=== PATIENT | male | born 1985 | race Caucasian/White ===

== ENCOUNTER 2016-11-12 14:44 | Emergency (ER) | payer SELFPAY ==
[~2016-11-12] VITALS: Ht 180.3 cm; Wt 67.8 kg
[~2016-11-12 14:44] MED LIST: DICL75 PO; MMW SSP; PENI500T PO
[2016-11-12 14:55] VITALS: BP 125/65; PULSE 74; RESP 16; TEMP 98.4; O2SAT 99
[2016-11-12] MEDS ORDERED: CLIN1CAP5 PO (15:50)
--- NOTE | 2016-11-12 15:51 | PD ---
HPI Chief Complaint: Oral / Dental Pain or Problem Time Seen by Provider: 15:51 Travel History International Travel<30 days: No Contact w/Intl Traveler<30days: No Traveled to known affect area: No History of Present Illness HPI 31-year-old male presents to the emergency department for evaluation of right upper dental pain and swelling for 1 day. Patient denies any injury or trauma to his teeth. States that the pain is causing him to have headache. Denies any discharge or drainage from the site. Denies any fever, chills, nausea, vomiting, difficulty swallowing, facial swelling. States he has taken over-the- counter ibuprofen and Tylenol without improvement of symptoms. Aggravated with talking and eating. Denies any alleviating factors. No other complaints. PFSH Past Medical History Medical History: Denies Significant Hx Diminished Hearing: No Immunizations Current: Yes Tetanus Vaccination: Unknown Influenza Vaccination: No Social History Alcohol Use: No Tobacco Use: Yes (1 PPD) Substance Use: No Allergies-Medications (Allergen,Severity, Reaction): Coded Allergies: No Known Allergies (Verified , 11/12/16) Reported Meds & Prescriptions Reported Meds & Active Scripts Active Clindamycin (Clindamycin HCl) 150 Mg Cap 300 Mg PO Q6H 10 Days Review of Systems Except as stated in HPI: all other systems reviewed are Neg Physical Exam Narrative GENERAL: Well-nourished and well-developed pleasant patient in no acute distress who is nontoxic appearing. SKIN: Warm and dry. HEAD: Normocephalic and atraumatic. No facial swelling. EYES: No injection, drainage, or hyphema noted. PERRLA. EOMI. ENT: No nasal drainage noted. Oropharynx is clear. DENTAL: Poor dentition. Multiple dental caries throughout. The gingiva above the right upper incisor tooth #7 is erythematous with swelling and fluctuance. No discharge or drainage. NECK: Supple and the trachea is midline. CARDIOVASCULAR: Regular rate and rhythm. RESPIRATORY: Breath sounds are equal bilaterally with no accessory muscle use, wheezing, rhonchi, or crackles. NEUROLOGICAL: Awake, alert, and oriented. Normal speech and gait. Cranial nerves are grossly intact. Data Data Last Documented VS Vital Signs Date Time Temp Pulse Resp B/P Pulse Ox O2 Delivery O2 Flow Rate FiO2 11/12/16 14:55 98.4 74 16 125/65 99 Orders Acetamin-Hydrocod 325-5 Mg ([place] 5-325 (11/12/16 16:00) MDM Medical Decision Making Medical Screen Exam Complete: Yes Emergency Medical Condition: Yes Differential Diagnosis Dental abscess versus infection versus pulpitis Narrative Course 31-year-old male presents to the emergency department for evaluation of dental pain. Patient is afebrile, vital signs are stable. He has a dental abscess. The patient will be prescribed clindamycin. Stressed the importance of following up with a dentist as an outpatient. Patient verbalizes understanding and agreement with treatment plan. Diagnosis Primary Impression: Dental abscess Referrals: Dentist Patient Instructions: Dental Abscess (ED), General Instructions Additional Instructions: Take medication as prescribed with food and a full glass of water. Follow-up with your Dentist. Return to the ED for any acute worsening of symptoms. Med/Other Pt SpecificInfo: Prescription(s) given Scripts Clindamycin 150 Mg [id number] Mg PO Q6H 10 Days Ref 0 Prov:Chaparro Peña MD 11/12/16 Disposition: 01 DISCHARGE HOME Condition: Stable Dalia Love Nov 12, 2016 15:51
[2016-11-12] MEDS ORDERED: NAPR500T PO (15:58)
[2016-11-12] MEDS ORDERED: ACETAMINOPHEN/HYDROcodone 325 MG/5 MG TAB PO ONE (16:00)
[2016-11-12 16:36] VITALS: RESP 18
== END 2016-11-12 16:37 | disposition home or self-care (01) ==
LOC: PHEFT 14:44
DX: K04.7 Periapical abscess without sinus (principal); R51 Headache; F17.200 Nicotine dependence, unspecified, uncomplicated
CPT/HCPCS: 99282

== ENCOUNTER 2016-12-07 14:36 | Inpatient (IN) | payer SELFPAY ==
[~2016-12-07] VITALS: Ht 180.3 cm; Wt 72.0 kg
[~2016-12-07 14:36] MED LIST changes: +CLIN1CAP5 PO; -DICL75 PO; -MMW SSP; +NAPR500T PO; -PENI500T PO
[2016-12-07 14:37] VITALS: BP 121/62; PULSE 16; PULSE 91; RESP 14; TEMP 98; O2SAT 99
--- NOTE | 2016-12-07 15:18 | PD ---
HPI Chief Complaint: Skin Problem Time Seen by Provider: 15:18 Travel History International Travel<30 days: No Contact w/Intl Traveler<30days: No Traveled to known affect area: No History of Present Illness HPI 31-year-old male with remote history of IV drug abuse presents to emergency department for evaluation of left upper extremity erythema and edema worsening over the last day. Patient states he noticed it most this morning. It is extremely painful, rates the pain an 8 out of 10. Denies any recent IV drug use. Denies any fever or chills. 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 Is current on his tetanus vaccination. Has no other symptoms to report. [facility] Past Medical History Medical History: Denies Significant Hx Diminished Hearing: No Immunizations Current: Yes Social History Alcohol Use: No Tobacco Use: Yes (1 PPD) Substance Use: No Allergies-Medications (Allergen,Severity, Reaction): Coded Allergies: No Known Allergies (Verified , 12/07/16) Reported Meds & Prescriptions Reported Meds & Active Scripts Active No Active Prescriptions or Reported Medications Review of Systems Except as stated in HPI: all other systems reviewed are Neg Physical Exam Narrative GENERAL: Well-nourished male patient, seemingly under the influence of unknown substance but in no acute distress SKIN: Warm and dry. Multiple small scab wounds and markings consistent with puncture wounds, concerning for track francois. Proximal to the left antecubital a there is a large area of erythema extending 10 cm at the center of it is a 3 cm diameter hardened area. There is no fluctuation. HEAD: Atraumatic. Normocephalic. EYES: Pupils equal and round. No scleral icterus. No injection or drainage. ENT: No nasal bleeding or discharge. Mucous membranes pink and moist. NECK: Trachea midline. No JVD. CARDIOVASCULAR: Regular rate and rhythm. No murmur appreciated. RESPIRATORY: No accessory muscle use. Clear to auscultation. Breath sounds equal bilaterally. GASTROINTESTINAL: Abdomen soft, non-tender, nondistended. Hepatic and splenic margins not palpable. MUSCULOSKELETAL: No obvious deformities. No clubbing. No cyanosis. She has full flexion extension of the left elbow. Distal pulses are palpable. Cap refills within normal limits. NEUROLOGICAL: Awake and alert. No obvious cranial nerve deficits. Motor grossly within normal limits. Normal speech. PSYCHIATRIC: Appropriate mood and affect; insight and judgment normal. Data Data Last Documented VS Vital Signs Date Time Temp Pulse Resp B/P Pulse Ox O2 Delivery O2 Flow Rate FiO2 12/07/16 18:04 97.8 67 17 113/77 99 Room Air Orders Us Arm Soft Tissue (12/07/16 ) Ketorolac Inj (Toradol Inj) (12/07/16 15:30) Complete Blood Count With Diff (12/07/16:) Prothrombin Time / Inr (Pt) (12/07/16:) Act Partial Throm Time (Ptt) (12/07/16:13) Urinalysis - C+S If Indicated (12/07/16:) Blood Culture (12/07/16:) Blood Glucose (12/07/16:) Ecg Monitoring (12/07/16:) Iv Access Insert/Monitor (12/07/16:) Oximetry (12/07/16:) Oxygen Administration (12/07/16:13) Basic Metabolic Panel (Bmp) (12/07/16:13) Clindamycin Inj (Cleocin Inj) (12/07/16 17:15) Piperacil-Tazo 3.375 Gm Premix (Zosyn 3. (12/07/16 18:30) Admit Order (Ed Use Only) (12/07/16 18:24) Code Status (12/07/16 18:23) Vital Signs (Adult) Q4H (12/07/16 18:23) Activity Oob Ad [place] (12/07/16 18:23) Intake + Output LON.QSHIFT (12/07/16 18:23) ^ Notify Dr: Other (12/07/16 18:23) Diet Regular Basic (12/07/16 Dinner) Sodium Chlor 0.9% 1000 Ml Inj (Ns 1000 M (12/07/16 18:23) Sodium Chloride 0.9% Flush (Ns Flush) (12/07/16 18:30) Sodium Chloride 0.9% Flush (Ns Flush) (12/07/16 21:00) Acetaminophen (Tylenol) (12/07/16 18:30) Ondansetron Inj (Zofran Inj) (12/07/16 18:30) Metoclopramide Inj (Reglan Inj) (12/07/16 18:30) Bisacodyl Supp (Dulcolax Supp) (12/07/16 18:30) Docusate Sodium (Colace) (12/07/16 20:00) Basic Metabolic Panel (Bmp) (12/08/16 06:00) Complete Blood Count With Diff (12/08/16 06:00) Prothrombin Time / Inr (Pt) (12/08/16 06:00) Hepatic Functional Panel (12/08/16 06:00) Heparin Inj (Heparin Inj) (12/07/16 18:30) Naloxone Inj (Narcan Inj) (12/07/16 18:30) Inpatient Certification (12/07/16 ) Labs Laboratory Tests Test 12/07/16 17:25 White Blood Count 8.8 TH/MM3 Red Blood Count 4.60 MIL/MM3 Hemoglobin 13.5 GM/DL Hematocrit 40.0 % Mean Corpuscular Volume 86.8 FL Mean Corpuscular Hemoglobin 29.4 PG Mean Corpuscular Hemoglobin 33.9 % Concent Red Cell Distribution Width 14.1 % Platelet Count 234 TH/MM3 Mean Platelet Volume 8.9 FL Neutrophils (%) (Auto) 64.5 % Lymphocytes (%) (Auto) 21.8 % Monocytes (%) (Auto) 10.4 % Eosinophils (%) (Auto) 2.8 % Basophils (%) (Auto) 0.5 % Neutrophils # (Auto) 5.7 TH/MM3 Lymphocytes # (Auto) 1.9 TH/MM3 Monocytes # (Auto) 0.9 TH/MM3 Eosinophils # (Auto) 0.3 TH/MM3 Basophils # (Auto) 0.0 TH/MM3 CBC Comment DIFF FINAL Differential Comment Prothrombin Time 10.9 SEC Prothromb Time International 1.0 RATIO Ratio Activated Partial 32.3 SEC Thromboplast Time Sodium Level 139 MEQ/L Potassium Level 3.9 MEQ/L Chloride Level 101 MEQ/L Carbon Dioxide Level 31.2 MEQ/L Anion Gap 7 MEQ/L Blood Urea Nitrogen 14 MG/DL Creatinine 0.99 MG/DL Estimat Glomerular Filtration 87 ML/MIN Rate Random Glucose 131 MG/DL Calcium Level 8.4 MG/DL MDM Medical Decision Making Medical Screen Exam Complete: Yes Emergency Medical Condition: Yes Medical Record Reviewed: Yes Differential Diagnosis Cellulitis versus abscess versus foreign body versus erysipelas versus sepsis Narrative Course 31-year-old male presents to the emergency brought in for evaluation of left upper extremity redness and swelling. Physical exam is consistent of cellulitis however there is a hardened area at the center. Ultrasound is complete and shows Last Impressions Upper Extremity Ultrasound 12/07/16 0000 Signed Impressions: Service Date/Time: Wednesday, December 07, 2016 15:49 - CONCLUSION: Relatively large subcutaneous abscess medially of the distal arm. Jaden Carreon MD I discussed the patient might any physician Dr. Mi who also assessed the area. He recommends admission to medicine for IV antibiotics and possible surgical consult. I spoke with Dr. Connolly. Patient be admitted to [facility]ist service. Diagnosis Primary Impression: Cellulitis of arm, left Additional Impression: Abscess of arm, left Admitting Information Admitting Physician Requests: Observation Scripts No Active Prescriptions or Reported Meds Condition: Stable Samantha Rao Dec 07, 2016 15:18
[2016-12-07] MEDS ORDERED: KETOROLAC TROMETHAMINE 60 MG/2 ML (IM) VIAL IM ONE (15:30)
--- NOTE | 2016-12-07 16:38 | RADRPT ---
EXAM DATE/TIME: 12/07/2016 15:49 [facility] COMPARISON: No previous studies available for comparison. INDICATIONS : Palpable area. MEDICAL HISTORY : Left arm redness and pain. SURGICAL HISTORY : Right hand surgery. ENCOUNTER: Initial ACUITY: 1 day PAIN SCORE: 9/10 LOCATION: Left arm. AREA EVALUATED: Medial left arm just prox to elbow. FINDINGS: Complex, hyperemic fluid collection seen in the subcutaneous tissues in the apical clear region typic al of abscess in the proper clinical setting. The collection measures 2.9 x 2.0 x 1.6 cm. There is a larger area of surrounding edematous, hyperemic tissue. Superficial margin of the fluid collection is about 4 mm below the skin. . CONCLUSION: Relatively large subcutaneous abscess medially of the distal arm. Jaden Carreon MD on December 07, 2016 at 16:35 Board Certified Radiologist. This report was verified electronically.
[2016-12-07] MEDS ORDERED: CLINDAMYCIN INJ 600 MG in SODIUM CHLORIDE 0.9% INJ 100 ML IV ONE (17:15)
[2016-12-07 17:49] LABS: AUTOMATED NEUTROPHIL # 5.7 TH/MM3 (1.8-7.7); BASOPHIL % 0.5 % (0.0-2.0); EOSINOPHIL # 0.3 TH/MM3 (0-0.4); EOSINOPHIL % 2.8 % (0.0-4.0); HEMO FLAGS DIFF FINAL; LYMPH % 21.8 % (9.0-44.0); LYMPHOCYTE # 1.9 TH/MM3 (1.0-4.8); MEAN CELL VOLUME 86.8 FL (80.0-100.0); MEAN CORPUSCULAR HEMOGLOBIN 29.4 PG (27.0-34.0); MEAN CORPUSCULAR HGB CONC 33.9 % (32.0-36.0); MONO % 10.4 % (0.0-8.0); NEUT % 64.5 % (16.0-70.0); PLATELET COUNT 234 TH/MM3 (150-450); RED CELL DISTRIBUTION WIDTH 14.1 % (11.6-17.2); WHITE BLOOD COUNT 8.8 TH/MM3 (4.0-11.0)
[2016-12-07 17:58] VITALS: RESP 17; O2SAT 99
[2016-12-07 17:59] LABS: APTT (PATIENT) 32.3 SEC (24.3-30.1); PROTHROMBIN TIME - PATIENT 10.9 SEC (9.8-11.6)
[2016-12-07 18:04] VITALS: BP 113/77; PULSE 67; RESP 17; TEMP 97.8; O2SAT 99
[2016-12-07 18:09] LABS: BICARBONATE 31.2 MEQ/L (21.0-32.0); POTASSIUM 3.9 MEQ/L (3.5-5.1)
[2016-12-07] MEDS ORDERED: SODIUM CHLORIDE 0.9% FLUSH 5 ML FLUSH FLUSH PRN (18:30)
[2016-12-07] MEDS ORDERED: BISACODYL 10 MG SUPP PR PRN (18:30)
[2016-12-07] MEDS ORDERED: NALOXONE HCL 0.4 MG/ML AMP IV PRN (18:30)
[2016-12-07] MEDS ORDERED: ONDANSETRON HCL 4 MG/2 ML VIAL IVP PRN (18:30)
[2016-12-07] MEDS ORDERED: METOCLOPRAMIDE HCL 10 MG/2 ML VIAL IV PUSH PRN (18:30)
[2016-12-07] MEDS ORDERED: ACETAMINOPHEN 325 MG TAB PO PRN (18:30)
[2016-12-07] MEDS ORDERED: PIPERACIL-TAZO 3.375 GM PREMIX 50 ML IV ONE (18:30)
[2016-12-07] MEDS ORDERED: Vancomycin Consult Pharmacy 1 EA OTHER SCH (18:30)
[2016-12-07] MEDS: SODIUM CHLOR 0.9% 1000 ML INJ 1,000 ML IV SCH (18:38)
--- NOTE | 2016-12-07 18:51 | HHI.HP ---
[facility] No Primary Care Physician Admission Diagnosis LUE cellulitis/abscess Diagnoses: Chief Complaint: left arm pain, edema and erythema Travel History International Travel<30 Days: No Contact w/Intl Traveler <30 Da: No Traveled to Known Affected Are: No History of Present Illness This is a pleasant 31 y/o Male with no past medical history with his Fiance by his side states this morning woke up with pain on his left inner arm near antecubital area denies any drug abuse or needle use, he developed erythema and edema and pain on the area decided to come to ER for evaluation . Past Family Social History Past Medical History Denies Past Surgical History Right arm surgery status post trauma Reported Medications Reported Meds & Active Scripts Active No Active Prescriptions or Reported Medications Allergies: Coded Allergies: No Known Allergies (Verified , 12/07/16) Active Ordered Medications Current Medications Medications (Trade) Dose Ordered Sig/Anita Route Start Time Stop Time Status Last Admin Piperacillin Sod/ Tazobactam Sod 50 ml @ 100 mls/hr ONCE ONCE IV 12/07/16 18:30 12/07/16 18:59 12/07/16 18:25 (NS 1000 ml Inj) 1,000 ml @ 100 mls/hr Q10H IV 12/07/16 18:23 12/07/16 18:38 (NS Flush) 2 ml UNSCH PRN FLUSH 12/07/16 18:30 (NS Flush) 2 ml BID FLUSH 12/07/16 21:00 (Tylenol) 650 mg Q4H PRN PO 12/07/16 18:30 (Zofran Inj) 4 mg Q6H PRN IVP 12/07/16 18:30 (Reglan Inj) 5 mg Q6H PRN IV PUSH 12/07/16 18:30 (Dulcolax Supp) 10 mg DAILY PRN LA 12/07/16 18:30 (Colace) 100 mg Q12H PO 12/07/16 20:00 (Heparin Inj) 5,000 units Q8H SQ 12/07/16 18:30 UNV Naloxone HCl 0.4 mg 0.4 mg UNSCH PRN IV 12/07/16 18:30 Vancomycin HCl 1250 mg/Sodium Chloride 262.5 ml @ 262.5 mls/ hr ONCE ONCE IV 12/07/16 18:30 12/07/16 19:29 UNV Piperacillin Sod/ Tazobactam Sod 50 ml @ 100 mls/hr Q6H IV 12/08/16 00:00 (Vancomycin Consult Pharmacy) 0 ml @ 0 mls/hr UNSCH OTHER 12/07/16 18:30 Family History Asked and denied Social History Lives with his Fiance, and smokes one pack of cigarettes daily, alcohol occasional no narcotic use. Physical Exam Vital Signs Vital Signs Date Time Temp Pulse Resp B/P Pulse Ox O2 Delivery O2 Flow Rate FiO2 12/07/16 18:04 97.8 67 17 113/77 99 Room Air 12/07/16 17:58 99 Room Air 12/07/16 17:58 17 99 Room Air 12/07/16 17:50 18 12/07/16 14:37 98.0 91 14 121/62 99 Physical Exam GENERAL: This is a well-nourished, well-developed patient, in no apparent distress. SKIN: No rashes, ecchymoses or lesions. Cool and dry. HEAD: Atraumatic. Normocephalic. No temporal or scalp tenderness. EYES: Pupils equal round and reactive. Extraocular motions intact. No scleral icterus. No injection or drainage. ENT: Nose without bleeding, purulent drainage or septal hematoma. Throat without erythema, tonsillar hypertrophy or exudate. Uvula midline. Airway patent. NECK: Trachea midline. No JVD or lymphadenopathy. Supple, nontender, no meningeal signs. CARDIOVASCULAR: Regular rate and rhythm without murmurs, gallops, or rubs. RESPIRATORY: Clear to auscultation. Breath sounds equal bilaterally. No wheezes , rales, or rhonchi. GASTROINTESTINAL: Abdomen soft, non-tender, nondistended. No hepato-splenomegaly , or palpable masses. No guarding. MUSCULOSKELETAL: left internal area or the left arm with 3 inches area of erythema edema and changes in calor and rubor. NEUROLOGICAL: Awake and alert. Cranial nerves II through XII intact. Motor and sensory grossly within normal limits. Five out of 5 muscle strength in all muscle groups. Normal speech. Laboratory Laboratory Tests Test 12/07/16 17:25 White Blood Count 8.8 Red Blood Count 4.60 Hemoglobin 13.5 Hematocrit 40.0 Mean Corpuscular Volume 86.8 Mean Corpuscular Hemoglobin 29.4 Mean Corpuscular Hemoglobin 33.9 Concent Red Cell Distribution Width 14.1 Platelet Count 234 Mean Platelet Volume 8.9 Neutrophils (%) (Auto) 64.5 Lymphocytes (%) (Auto) 21.8 Monocytes (%) (Auto) 10.4 Eosinophils (%) (Auto) 2.8 Basophils (%) (Auto) 0.5 Neutrophils # (Auto) 5.7 Lymphocytes # (Auto) 1.9 Monocytes # (Auto) 0.9 Eosinophils # (Auto) 0.3 Basophils # (Auto) 0.0 CBC Comment DIFF FINAL Differential Comment Prothrombin Time 10.9 Prothromb Time International 1.0 Ratio Activated Partial 32.3 Thromboplast Time Sodium Level 139 Potassium Level 3.9 Chloride Level 101 Carbon Dioxide Level 31.2 Anion Gap 7 Blood Urea Nitrogen 14 Creatinine 0.99 Estimat Glomerular Filtration 87 Rate Random Glucose 131 Calcium Level 8.4 Date/Time Procedure Status Source Growth 12/07/16 17:35 Aerobic Blood Culture Received Blood Peripheral Pending 12/07/16 17:35 Anaerobic Blood Culture Received Blood Peripheral Pending Result Diagram: 12/07/16 1725 12/07/16 1725 Imaging Last Impressions Upper Extremity Ultrasound 12/07/16 0000 Signed Impressions: Service Date/Time: Wednesday, December 07, 2016 15:49 - CONCLUSION: Relatively large subcutaneous abscess medially of the distal arm. Jaden Carreon MD Assessment and Plan Assessment and Plan Left arm abscess following blood cultures, started on Clindamycin and Zosyn in Emergency room I will continue Zosyn switch to Vancomycin, consult general field applications specialist and follow recommendations for management De Escalate antibiotics depend of cultures Tobacco dependence strongly recommended to stop smoking asked for blood cultures, Drug screen DVT prophylaxis with Heparin to discontinue for possible procedure by General Surgery. Code Status Full Code. Physician Certification 2 Midnight Certification Type: Admission for Inpatient Services Order for Inpatient Services The services are ordered in accordance with Medicare regulations or non- Medicare payer requirements, as applicable. In the case of services not specified as inpatient-only, they are appropriately provided as inpatient services in accordance with the 2-midnight benchmark. Estimated LOS (days): 3 days is the estimated time the patient will need to remain in the hospital, assuming treatment plan goals are met and no additional complications. Post-Hospital Plan: Home Cuate Linares MD Dec 07, 2016 18:51
[2016-12-07] MEDS: ACETAMINOPHEN/HYDROcodone 325 MG/5 MG TAB PO PRN (19:20)
[2016-12-07] MEDS: SODIUM CHLORIDE 0.9% FLUSH 5 ML FLUSH FLUSH SCH (21:00)
[2016-12-07] MEDS: DOCUSATE SODIUM 100 MG CAP PO SCH (21:54)
[2016-12-07] MEDS: VANCOMYCIN INJ 1,250 MG in SODIUM CHLOR 0.9% 250 ML INJ 250 ML IV SCH (21:54)
[2016-12-07] MEDS: HEPARIN SODIUM - SQ 10,000 UNITS/ML VIAL SQ SCH (21:55)
[2016-12-07 21:56] VITALS: BP 120/74; PULSE 74; RESP 26; O2SAT 98
[2016-12-07 22:14] VITALS: BP 115/58; PULSE 63; RESP 20; TEMP 98; O2SAT 97
[2016-12-07 23:39] VITALS: BP 119/51; PULSE 73; RESP 20; TEMP 97.6; O2SAT 98
[2016-12-08] MEDS: PIPERACIL-TAZO 3.375 GM PREMIX 50 ML IV SCH ×5 (00:42→23:13)
[2016-12-08] MEDS: ACETAMINOPHEN/HYDROcodone 325 MG/5 MG TAB PO PRN ×4 (01:15→18:50)
[2016-12-08 04:09] VITALS: BP 137/73; PULSE 85; RESP 20; TEMP 97.9; O2SAT 99
[2016-12-08] MEDS: SODIUM CHLOR 0.9% 1000 ML INJ 1,000 ML IV SCH ×3 (04:23→20:46)
[2016-12-08] MEDS: HEPARIN SODIUM - SQ 10,000 UNITS/ML VIAL SQ SCH ×3 (04:47→20:00)
[2016-12-08 08:16] LABS: AUTOMATED NEUTROPHIL # 6.1 TH/MM3 (1.8-7.7); BASOPHIL % 0.3 % (0.0-2.0); EOSINOPHIL # 0.2 TH/MM3 (0-0.4); EOSINOPHIL % 2.1 % (0.0-4.0); HEMATOCRIT 40.9 % (39.0-51.0); HEMO FLAGS DIFF FINAL; LYMPH % 19.9 % (9.0-44.0); LYMPHOCYTE # 1.8 TH/MM3 (1.0-4.8); MEAN CELL VOLUME 87.6 FL (80.0-100.0); MEAN CORPUSCULAR HEMOGLOBIN 29.1 PG (27.0-34.0); MEAN CORPUSCULAR HGB CONC 33.3 % (32.0-36.0); MONO % 9.1 % (0.0-8.0); NEUT % 68.6 % (16.0-70.0); PLATELET COUNT 233 TH/MM3 (150-450); RED BLOOD COUNT 4.67 MIL/MM3 (4.50-5.90); RED CELL DISTRIBUTION WIDTH 14.1 % (11.6-17.2); WHITE BLOOD COUNT 8.8 TH/MM3 (4.0-11.0)
[2016-12-08] MEDS: DOCUSATE SODIUM 100 MG CAP PO SCH ×2 (08:20→20:00)
[2016-12-08] MEDS: SODIUM CHLORIDE 0.9% FLUSH 5 ML FLUSH FLUSH SCH ×2 (08:20→20:55)
[2016-12-08 08:29] LABS: PROTHROMBIN TIME - PATIENT 11.4 SEC (9.8-11.6)
[2016-12-08 08:33] VITALS: BP 130/73; PULSE 62; RESP 14; TEMP 98.1; O2SAT 99
[2016-12-08] MEDS ORDERED: LIDOCAINE HCL 1% 50 ML VIAL ONE (08:50)
[2016-12-08 08:51] LABS: INDIRECT BILIRUBIN 0.8 MG/DL (0.0-0.8); POTASSIUM 4.1 MEQ/L (3.5-5.1)
--- NOTE | 2016-12-08 09:12 | MB ---
cc: EBONY TAVERAS DATE OF CONSULTATION: 12/07/2016 REQUESTING PHYSICIAN: Dr. Heron Connolly. REASON FOR CONSULTATION: Left lower extremity edema, pain and cellulitis. 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 The patient denies any drug use or IV injection in this area. The patient states he never had a infection like this prior. The patient was brought to the emergency room for evaluation by his fiance. He underwent evaluation was found to have white blood cell count of 8.8, afebrile, however, ultrasound of this area did show some subcutaneous change possible early abscess formation and therefore general surgery was consulted.. PAST MEDICAL AND SURGICAL HISTORY Right arm surgery after trauma otherwise negative. ALLERGIES NO KNOWN DRUG ALLERGIES. MEDICATIONS None. SOCIAL HISTORY Smokes cigarettes occasionally uses alcohol. Denies illicit drug use. PHYSICAL EXAMINATION VITAL SIGNS: Temperature 97.8 degrees, pulse 67, respiratory rate 17, blood pressure 113/77, O2 sat 100%. IN GENERAL: The patient is awake, alert appropriate. male in no acute distress. EXTREMITY: The left arm reveals a neurovascularly intact arm which showed some minimal erythema, some edema over the area of the biceps subcutaneously with some edema surrounding this area consistent with mild cellulitis. There is no fluctuance or purulence. No spontaneous drainage, no lymphadenopathy. ASSESSMENT/PLAN The patient is a 31 year old male with left upper arm, soft tissue infection without sepsis. Currently clinically the patient has no drainable abscess or fluid and per history this has only been going on for less than 24 hours therefore unlikely that this could have formed an abscess. I discussed this with the patient lenny, that I do not feel that incision and drainage at this time would be in the patient's best interest. We will continue antibiotics. Follow along with the patient. If the patient were to develop a focal abscess with fluctuance in the next 24 to 48 hours we will recommend draining at that time. Otherwise due to the early stage of the infection, antibiotics can potentially clear the infection without surgical intervention. They would like to avoid surgical intervention if at all possible as well. Thank you very much for this consultation. We will follow along with the patient MD RADHA Fish/[place] /2:44 AM /8:23 AM
--- NOTE | 2016-12-08 09:27 | HHI.PR ---
Subjective Subjective Notes feels well, still lue pain Objective Vitals/I&O Vital Signs Date Time Temp Pulse Resp B/P Pulse Ox O2 Delivery O2 Flow Rate FiO2 12/08/16 08:33 98.1 62 14 130/73 99 12/07/16 21:56 Room Air Labs Laboratory Tests Test 12/07/16 12/08/16 17:25 06:55 White Blood Count 8.8 8.8 Red Blood Count 4.60 4.67 Hemoglobin 13.5 13.6 Hematocrit 40.0 40.9 Mean Corpuscular Volume 86.8 87.6 Mean Corpuscular Hemoglobin 29.4 29.1 Mean Corpuscular Hemoglobin 33.9 33.3 Concent Red Cell Distribution Width 14.1 14.1 Platelet Count 234 233 Mean Platelet Volume 8.9 9.6 Neutrophils (%) (Auto) 64.5 68.6 Lymphocytes (%) (Auto) 21.8 19.9 Monocytes (%) (Auto) 10.4 9.1 Eosinophils (%) (Auto) 2.8 2.1 Basophils (%) (Auto) 0.5 0.3 Neutrophils # (Auto) 5.7 6.1 Lymphocytes # (Auto) 1.9 1.8 Monocytes # (Auto) 0.9 0.8 Eosinophils # (Auto) 0.3 0.2 Basophils # (Auto) 0.0 0.0 CBC Comment DIFF FINAL DIFF FINAL Differential Comment Prothrombin Time 10.9 11.4 Prothromb Time International 1.0 1.0 Ratio Activated Partial 32.3 Thromboplast Time Sodium Level 139 141 Potassium Level 3.9 4.1 Chloride Level 101 107 Carbon Dioxide Level 31.2 26.0 Anion Gap 7 8 Blood Urea Nitrogen 14 16 Creatinine 0.99 0.93 Estimat Glomerular Filtration 87 94 Rate Random Glucose 131 98 Calcium Level 8.4 8.2 Total Bilirubin 1.0 Direct Bilirubin 0.2 Indirect Bilirubin 0.8 Aspartate Amino Transf 105 (AST/SGOT) Alanine Aminotransferase 159 (ALT/SGPT) Alkaline Phosphatase 48 Total Protein 6.8 Albumin 2.9 Date/Time Procedure Status Source Growth 12/07/16 17:35 Aerobic Blood Culture Received Blood Peripheral Pending 12/07/16 17:35 Anaerobic Blood Culture Received Blood Peripheral Pending Extremities: No edema Narrative Exam LUE with less erythema A/P Assessment and Plan 31yo with LUE infection/early abscess, ID today with some small amount of pus, ok for showering and DC from surgery standpoint, fu PRN. culture taken/pending. Beni King MD Dec 08, 2016 09:27
[2016-12-08] MEDS: VANCOMYCIN INJ 1,250 MG in SODIUM CHLOR 0.9% 250 ML INJ 250 ML IV SCH ×2 (09:49→20:44)
--- NOTE | 2016-12-08 10:51 | HHI.PR ---
Subjective Remarks This is a pleasant 31 y/o Male with no past medical history with his Fiance by his side states this morning woke up with pain on his left inner arm near antecubital area denies any drug abuse or needle use, he developed erythema and edema and pain on the area decided to come to ER for evaluation . patient seen in his bedroom continue antibiotics, following blood culture, status post I and D performed by General blood bank specialist, Discussed with Doctor Beni King he is okay to discharge patient from General Surgery standpoint, will follow patient 23 hours more Hospitalized. afebrile, no Leukocytosis probable discharge in am tomorrow. Objective Vital Signs Date Time Temp Pulse Resp B/P Pulse Ox O2 Delivery O2 Flow Rate FiO2 12/08/16 09:40 18 12/08/16 08:33 98.1 62 14 130/73 99 12/08/16 04:09 97.9 85 20 137/73 99 12/07/16 23:39 97.6 73 20 119/51 98 12/07/16 22:14 98.0 63 20 115/58 97 12/07/16 21:56 74 26 120/74 98 Room Air 12/07/16 18:04 97.8 67 17 113/77 99 Room Air 12/07/16 17:58 99 Room Air 12/07/16 17:58 17 99 Room Air 12/07/16 17:50 18 12/07/16 14:37 98.0 91 14 121/62 99 I/O 12/07/16 12/07/16 12/07/16 12/08/16 12/08/16 12/08/16 07:00 15:00 23:00 07:00 15:00 23:00 Intake Total 240 ml Output Total 800 ml 550 ml Balance -560 ml -550 ml Intake Oral 240 ml Output Urine Total 800 ml 550 ml Result Diagram: 12/08/16 0655 12/08/16 0655 Imaging Last Impressions Upper Extremity Ultrasound 12/07/16 0000 Signed Impressions: Service Date/Time: Wednesday, December 07, 2016 15:49 - CONCLUSION: Relatively large subcutaneous abscess medially of the distal arm. Jaden Carreon MD Procedures Status post I and D performed by General Surgery Other Results Laboratory Tests Test 12/07/16 12/08/16 17:25 06:55 Activated Partial 32.3 SEC Thromboplast Time White Blood Count 8.8 TH/MM3 Red Blood Count 4.67 MIL/MM3 Hemoglobin 13.6 GM/DL Hematocrit 40.9 % Mean Corpuscular Volume 87.6 FL Mean Corpuscular Hemoglobin 29.1 PG Mean Corpuscular Hemoglobin 33.3 % Concent Red Cell Distribution Width 14.1 % Platelet Count 233 TH/MM3 Mean Platelet Volume 9.6 FL Neutrophils (%) (Auto) 68.6 % Lymphocytes (%) (Auto) 19.9 % Monocytes (%) (Auto) 9.1 % Eosinophils (%) (Auto) 2.1 % Basophils (%) (Auto) 0.3 % Neutrophils # (Auto) 6.1 TH/MM3 Lymphocytes # (Auto) 1.8 TH/MM3 Monocytes # (Auto) 0.8 TH/MM3 Eosinophils # (Auto) 0.2 TH/MM3 Basophils # (Auto) 0.0 TH/MM3 CBC Comment DIFF FINAL Differential Comment Prothrombin Time 11.4 SEC Prothromb Time International 1.0 RATIO Ratio Sodium Level 141 MEQ/L Potassium Level 4.1 MEQ/L Chloride Level 107 MEQ/L Carbon Dioxide Level 26.0 MEQ/L Anion Gap 8 MEQ/L Blood Urea Nitrogen 16 MG/DL Creatinine 0.93 MG/DL Estimat Glomerular Filtration 94 ML/MIN Rate Random Glucose 98 MG/DL Calcium Level 8.2 MG/DL Total Bilirubin 1.0 MG/DL Direct Bilirubin 0.2 MG/DL Indirect Bilirubin 0.8 MG/DL Aspartate Amino Transf 105 U/L (AST/SGOT) Alanine Aminotransferase 159 U/L (ALT/SGPT) Alkaline Phosphatase 48 U/L Total Protein 6.8 GM/DL Albumin 2.9 GM/DL Objective Remarks GENERAL: This is a well-nourished, well-developed patient, in no apparent distress. SKIN: No rashes, ecchymoses or lesions. Cool and dry. HEAD: Atraumatic. Normocephalic. No temporal or scalp tenderness. EYES: Pupils equal round and reactive. Extraocular motions intact. No scleral icterus. No injection or drainage. ENT: Nose without bleeding, purulent drainage or septal hematoma. Throat without erythema, tonsillar hypertrophy or exudate. Uvula midline. Airway patent. NECK: Trachea midline. No JVD or lymphadenopathy. Supple, nontender, no meningeal signs. CARDIOVASCULAR: Regular rate and rhythm without murmurs, gallops, or rubs. RESPIRATORY: Clear to auscultation. Breath sounds equal bilaterally. No wheezes , rales, or rhonchi. GASTROINTESTINAL: Abdomen soft, non-tender, nondistended. No hepato-splenomegaly , or palpable masses. No guarding. MUSCULOSKELETAL: left internal area or the left arm with 3 inches area of erythema edema and changes in calor and rubor. NEUROLOGICAL: Awake and alert. Cranial nerves II through XII intact. Motor and sensory grossly within normal limits. Five out of 5 muscle strength in all muscle groups. Normal speech. Medications and IVs Current Medications Medications (Trade) Dose Ordered Sig/Anita Route Start Time Stop Time Status Last Admin (NS 1000 ml Inj) 1,000 ml @ 100 mls/hr Q10H IV 12/07/16 18:23 12/08/16 08:24 (NS Flush) 2 ml UNSCH PRN FLUSH 12/07/16 18:30 (NS Flush) 2 ml BID FLUSH 12/07/16 21:00 12/08/16 08:20 (Tylenol) 650 mg Q4H PRN PO 12/07/16 18:30 (Zofran Inj) 4 mg Q6H PRN IVP 12/07/16 18:30 (Reglan Inj) 5 mg Q6H PRN IV PUSH 12/07/16 18:30 (Dulcolax Supp) 10 mg DAILY PRN [place] 12/07/16 18:30 (Colace) 100 mg Q12H PO 12/07/16 20:00 12/08/16 08:20 (Heparin Inj) 5,000 units Q8H SQ 12/07/16 20:00 12/07/16 21:55 Naloxone HCl 0.4 mg 0.4 mg UNSCH PRN IV 12/07/16 18:30 Vancomycin HCl 1250 mg/Sodium Chloride 262.5 ml @ 262.5 mls/ hr Q12H IV 12/07/16 20:00 12/08/16 09:49 Piperacillin Sod/ Tazobactam Sod 50 ml @ 100 mls/hr Q6H IV 12/08/16 00:00 12/08/16 05:35 (Vancomycin Consult Pharmacy) 0 ml @ 0 mls/hr UNSCH OTHER 12/07/16 18:30 ([place] 5-325 Mg) 1 tab Q4H PRN PO 12/07/16 19:00 12/08/16 08:20 Miscellaneous Information SPECIFIC LAB TO BE DRAWN:VANCOMY... ONCE ONCE XX 12/09/16 07:45 12/09/16 07:46 A/P Assessment and Plan Left arm abscess following blood cultures, started on Clindamycin and Zosyn in Emergency room I will continue Zosyn switch to Vancomycin, consult general career resource specialist and follow recommendations for management [place] antibiotics depend of cultures, now status post I and D performed by general blood bank specialist okay to discharge from his standpoint, Tobacco dependence strongly recommended to stop smoking asked for blood cultures, Drug screen DVT prophylaxis with Heparin to discontinue for possible procedure by General Surgery. Code Status Full Code. Discharge Planning Expected by Tomorrow. Cuate Linares MD Dec 08, 2016 10:51
[2016-12-08 11:08] VITALS: BP 123/70; PULSE 68; RESP 18; TEMP 98.3; O2SAT 98
[2016-12-08 15:20] VITALS: BP 122/69; PULSE 80; RESP 14; TEMP 98.4; O2SAT 99
[2016-12-08 17:39] LABS: BLOOD, URINE NEG (NEG); GLUCOSE,URINE NEG (NEG); KETONE, URINE NEG (NEG); NITRITE,URINE NEG (NEG); URINE COLOR YELLOW (YELLW/STRAW)
[2016-12-08 17:42] LABS: COMMENT (UR) CATH-CULT NOT IND; CULTURE IF INDICATED CATH CULTURE NOT IND
[2016-12-08 17:46] LABS: AMPHETAMINE, URINE NEG (NEG); BARBITURATES, URINE NEG (NEG); COCAINE, URINE NEG (NEG)
[2016-12-08 19:56] VITALS: BP 117/56; PULSE 79; RESP 20; TEMP 97.6; O2SAT 98
[2016-12-09 00:23] VITALS: BP 130/65; PULSE 65; RESP 20; TEMP 97.5; O2SAT 99
[2016-12-09] MEDS: HEPARIN SODIUM - SQ 10,000 UNITS/ML VIAL SQ SCH ×2 (02:05→12:00)
[2016-12-09 03:36] VITALS: BP 125/60; PULSE 68; RESP 20; TEMP 97.6; O2SAT 98
[2016-12-09] MEDS: ACETAMINOPHEN/HYDROcodone 325 MG/5 MG TAB PO PRN ×2 (03:56→09:24)
[2016-12-09] MEDS: PIPERACIL-TAZO 3.375 GM PREMIX 50 ML IV SCH ×2 (05:38→11:48)
[2016-12-09] MEDS ORDERED: PHARMACY ORDERED LAB XX ONE ×2 (07:45→19:45)
[2016-12-09] MEDS: DOCUSATE SODIUM 100 MG CAP PO SCH (08:00)
[2016-12-09] MEDS: VANCOMYCIN INJ 1,250 MG in SODIUM CHLOR 0.9% 250 ML INJ 250 ML IV SCH (08:07)
[2016-12-09] MEDS: SODIUM CHLOR 0.9% 1000 ML INJ 1,000 ML IV SCH (08:07)
[2016-12-09] MEDS: SODIUM CHLORIDE 0.9% FLUSH 5 ML FLUSH FLUSH SCH (08:08)
--- NOTE | 2016-12-09 08:16 | HHI.PR ---
Subjective Remarks This is a pleasant 31 y/o Male with no past medical history with his Fiance by his side states this morning woke up with pain on his left inner arm near antecubital area denies any drug abuse or needle use, he developed erythema and edema and pain on the area decided to come to ER for evaluation . Patient seen in the room, blood cultures so far negative, afebrile, agree with discharge will go home on by mouth antibiotics. Objective Vital Signs Date Time Temp Pulse Resp B/P Pulse Ox O2 Delivery O2 Flow Rate FiO2 12/09/16 03:36 97.6 68 20 125/60 98 12/09/16 00:23 97.5 65 20 130/65 99 12/08/16 19:56 97.6 79 20 117/56 98 12/08/16 15:20 98.4 80 14 122/69 99 12/08/16 14:23 18 12/08/16 11:08 98.3 68 18 123/70 98 12/08/16 08:33 98.1 62 14 130/73 99 I/O 12/08/16 12/08/16 12/08/16 12/09/16 12/09/16 12/09/16 07:00 15:00 23:00 07:00 15:00 23:00 Intake Total 240 ml 720 ml 1230 ml 240 ml Output Total 800 ml 1425 ml 1200 ml 700 ml Balance -560 ml -705 ml 30 ml -460 ml Intake Oral 240 ml 720 ml 480 ml 240 ml IV Total 750 ml Output Urine Total 800 ml 1425 ml 1200 ml 700 ml Result Diagram: 12/08/16 0655 12/09/16 0455 Imaging Last Impressions Upper Extremity Ultrasound 12/07/16 0000 Signed Impressions: Service Date/Time: Wednesday, December 07, 2016 15:49 - CONCLUSION: Relatively large subcutaneous abscess medially of the distal arm. Jaden Carreon MD Procedures Status post I and D performed by General Surgery Other Results Laboratory Tests Test 12/07/16 12/08/16 12/08/16 12/09/16 17:25 06:55 16:00 04:55 Activated Partial 32.3 SEC Thromboplast Time White Blood Count 8.8 TH/MM3 Red Blood Count 4.67 MIL/MM3 Hemoglobin 13.6 GM/DL Hematocrit 40.9 % Mean Corpuscular Volume 87.6 FL Mean Corpuscular Hemoglobin 29.1 PG Mean Corpuscular Hemoglobin 33.3 % Concent Red Cell Distribution Width 14.1 % Platelet Count 233 TH/MM3 Mean Platelet Volume 9.6 FL Neutrophils (%) (Auto) 68.6 % Lymphocytes (%) (Auto) 19.9 % Monocytes (%) (Auto) 9.1 % Eosinophils (%) (Auto) 2.1 % Basophils (%) (Auto) 0.3 % Neutrophils # (Auto) 6.1 TH/MM3 Lymphocytes # (Auto) 1.8 TH/MM3 Monocytes # (Auto) 0.8 TH/MM3 Eosinophils # (Auto) 0.2 TH/MM3 Basophils # (Auto) 0.0 TH/MM3 CBC Comment DIFF FINAL Differential Comment Prothrombin Time 11.4 SEC Prothromb Time International 1.0 RATIO Ratio Sodium Level 141 MEQ/L Potassium Level 4.1 MEQ/L Chloride Level 107 MEQ/L Carbon Dioxide Level 26.0 MEQ/L Anion Gap 8 MEQ/L Blood Urea Nitrogen 16 MG/DL Random Glucose 98 MG/DL Calcium Level 8.2 MG/DL Total Bilirubin 1.0 MG/DL Direct Bilirubin 0.2 MG/DL Indirect Bilirubin 0.8 MG/DL Aspartate Amino Transf 105 U/L (AST/SGOT) Alanine Aminotransferase 159 U/L (ALT/SGPT) Alkaline Phosphatase 48 U/L Total Protein 6.8 GM/DL Albumin 2.9 GM/DL Urine Color YELLOW Urine Turbidity CLEAR Urine pH 8.0 Urine Specific [place] 1.017 Urine Protein NEG mg/dL Urine Glucose (UA) NEG mg/dL Urine Ketones NEG mg/dL Urine Occult Blood NEG Urine Nitrite NEG Urine Bilirubin NEG Urine Urobilinogen 2.0 MG/DL Urine Leukocyte Esterase NEG Urine WBC LESS THAN 1 /hpf Microscopic Urinalysis Comment CATH-CULT NOT IND Urine Opiates Screen POS Urine Barbiturates Screen NEG Urine Amphetamines Screen NEG Urine Benzodiazepines Screen NEG Urine Cocaine Screen NEG Urine Cannabinoids Screen POS Creatinine 0.75 MG/DL Estimat Glomerular Filtration 120 ML/MIN Rate Objective Remarks GENERAL: This is a well-nourished, well-developed patient, in no apparent distress. SKIN: No rashes, ecchymoses or lesions. Cool and dry. HEAD: Atraumatic. Normocephalic. No temporal or scalp tenderness. EYES: Pupils equal round and reactive. Extraocular motions intact. No scleral icterus. No injection or drainage. ENT: Nose without bleeding, purulent drainage or septal hematoma. Throat without erythema, tonsillar hypertrophy or exudate. Uvula midline. Airway patent. NECK: Trachea midline. No JVD or lymphadenopathy. Supple, nontender, no meningeal signs. CARDIOVASCULAR: Regular rate and rhythm without murmurs, gallops, or rubs. RESPIRATORY: Clear to auscultation. Breath sounds equal bilaterally. No wheezes , rales, or rhonchi. GASTROINTESTINAL: Abdomen soft, non-tender, nondistended. No hepato-splenomegaly , or palpable masses. No guarding. MUSCULOSKELETAL: left arm improved no erythema, no edema, small surgical wound. NEUROLOGICAL: Awake and alert. Cranial nerves II through XII intact. Motor and sensory grossly within normal limits. Five out of 5 muscle strength in all muscle groups. Normal speech. Medications and IVs Current Medications Medications (Trade) Dose Ordered Sig/Anita Route Start Time Stop Time Status Last Admin (NS 1000 ml Inj) 1,000 ml @ 100 mls/hr Q10H IV 12/07/16 18:23 12/09/16 08:07 (NS Flush) 2 ml UNSCH PRN FLUSH 12/07/16 18:30 12/09/16 08:08 (NS Flush) 2 ml BID FLUSH 12/07/16 21:00 12/09/16 08:08 (Tylenol) 650 mg Q4H PRN PO 12/07/16 18:30 (Zofran Inj) 4 mg Q6H PRN IVP 12/07/16 18:30 (Reglan Inj) 5 mg Q6H PRN IV PUSH 12/07/16 18:30 (Dulcolax Supp) 10 mg DAILY PRN [place] 12/07/16 18:30 (Colace) 100 mg Q12H PO 12/07/16 20:00 12/08/16 08:20 (Heparin Inj) 5,000 units Q8H SQ 12/07/16 20:00 12/08/16 11:04 Naloxone HCl 0.4 mg 0.4 mg UNSCH PRN IV 12/07/16 18:30 Vancomycin HCl 1250 mg/Sodium Chloride 262.5 ml @ 262.5 mls/ hr Q12H IV 12/07/16 20:00 12/09/16 08:07 Piperacillin Sod/ Tazobactam Sod 50 ml @ 100 mls/hr Q6H IV 12/08/16 00:00 12/09/16 05:38 (Vancomycin Consult Pharmacy) 0 ml @ 0 mls/hr UNSCH OTHER 12/07/16 18:30 ([place] 5-325 Mg) 1 tab Q4H PRN PO 12/07/16 19:00 12/09/16 03:56 A/P Assessment and Plan Left arm abscess following blood cultures, started on Clindamycin and Zosyn in Emergency room I will continue Zosyn switch to Vancomycin, consult general neurological surgery teacher and performed I and D. as per General surgery okay to discharge home will go home on by mouth Clindamycin, and follow with PCP. Tobacco dependence strongly recommended to stop smoking Substance abuse strongly recommended to stop behavior. DVT prophylaxis with Heparin Code Status Full Code. Discharge Planning Discharge Home Cuate Linares MD Dec 09, 2016 08:16 Full Code. Discharge Planning Expected by Tomorrow. Cuate Linares MD Dec 09, 2016 08:16
[2016-12-09 09:32] VITALS: BP 130/75; PULSE 61; RESP 18; TEMP 97.3; O2SAT 99
[2016-12-09 11:26] VITALS: BP 120/65; PULSE 66; RESP 18; TEMP 97.5; O2SAT 99
[2016-12-09 11:47] VITALS: RESP 16
[2016-12-09] MEDS ORDERED: CLIN1CAP6 PO (13:10)
--- NOTE | 2016-12-09 13:12 | HHI.DS ---
Discharge Summary Admission Date Dec 07, 2016 at 18:26 Discharge Date: Dec 09, 2016 Admitting Diagnosis LUE cellulitis/abscess (1) Abscess of arm, left ICD Code: L02.414 Diagnosis: Principal (2) Cellulitis of arm, left ICD Code: L03.114 Diagnosis: Principal Procedures I and D by General client application support specialist. Brief History - From Admission This is a pleasant 31 y/o Male with no past medical history with his Fiance by his side states this morning woke up with pain on his left inner arm near antecubital area denies any drug abuse or needle use, he developed erythema and edema and pain on the area decided to come to ER for evaluation . CBC/BMP: 12/08/16 0655 12/09/16 0455 Significant Findings Laboratory Tests Test 12/07/16 12/08/16 12/08/16 17:25 06:55 16:00 Monocytes (%) (Auto) 10.4 % 9.1 % (0.0-8.0) (0.0-8.0) Activated Partial 32.3 SEC Thromboplast Time (24.3-30.1) Estimat Glomerular Filtration 87 ML/MIN (>89) Rate Random Glucose 131 MG/DL (74-106) Calcium Level 8.4 MG/DL 8.2 MG/DL (8.5-10.1) (8.5-10.1) Aspartate Amino Transf 105 U/L (15-37) (AST/SGOT) Alanine Aminotransferase 159 U/L (12-78) (ALT/SGPT) Albumin 2.9 GM/DL (3.4-5.0) Urine Opiates Screen POS (NEG) Urine Cannabinoids Screen POS (NEG) Imaging Last Impressions Upper Extremity Ultrasound 12/07/16 0000 Signed Impressions: Service Date/Time: Wednesday, December 07, 2016 15:49 - CONCLUSION: Relatively large subcutaneous abscess medially of the distal arm. Jaden Carreon MD PE at Discharge GENERAL: This is a well-nourished, well-developed patient, in no apparent distress. SKIN: No rashes, ecchymoses or lesions. Cool and dry. HEAD: Atraumatic. Normocephalic. No temporal or scalp tenderness. EYES: Pupils equal round and reactive. Extraocular motions intact. No scleral icterus. No injection or drainage. ENT: Nose without bleeding, purulent drainage or septal hematoma. Throat without erythema, tonsillar hypertrophy or exudate. Uvula midline. Airway patent. NECK: Trachea midline. No JVD or lymphadenopathy. Supple, nontender, no meningeal signs. CARDIOVASCULAR: Regular rate and rhythm without murmurs, gallops, or rubs. RESPIRATORY: Clear to auscultation. Breath sounds equal bilaterally. No wheezes , rales, or rhonchi. GASTROINTESTINAL: Abdomen soft, non-tender, nondistended. No hepato-splenomegaly , or palpable masses. No guarding. MUSCULOSKELETAL: left arm improved no erythema, no edema, small surgical wound. NEUROLOGICAL: Awake and alert. Cranial nerves II through XII intact. Motor and sensory grossly within normal limits. Five out of 5 muscle strength in all muscle groups. Normal speech. Hospital Course This is a pleasant 31 y/o Male with no past medical history with his Fiance by his side states this morning woke up with pain on his left inner arm near antecubital area denies any drug abuse or needle use, he developed erythema and edema and pain on the area decided to come to ER for evaluation . Patient seen in the room, blood cultures so far negative, afebrile, agree with discharge will go home on by mouth antibiotics. Assessment and Plan Left arm abscess following blood cultures, started on Clindamycin and Zosyn in Emergency room I will continue Zosyn switch to Vancomycin, consult general explosive ordnance disposal specialist and performed I and D. as per General surgery okay to discharge home will go home on by mouth Clindamycin, and follow with PCP. Tobacco dependence strongly recommended to stop smoking Substance abuse strongly recommended to stop behavior. DVT prophylaxis with Heparin Code Status Full Code. Pt Condition on Discharge: Good Discharge Disposition: Discharge Home Discharge Time: <= 30 minutes Discharge Instructions DIET: Follow Instructions for: As Tolerated, No Restrictions Activities you can perform: Regular-No Restrictions Cuate Linares MD Dec 09, 2016 13:12
== END 2016-12-09 13:33 | disposition home or self-care (01) | DRG 603 ==
LOC: NEPB 14:36 → OBSVTOIN 18:26 → NEDA 18:26 → NEPGCP 22:11
PROVIDERS: ADMIT Internal Medicine; ATTEND Internal Medicine
PROC: 0J9H3ZZ Drainage of Left Lower Arm Subcutaneous Tissue and Fascia, Percutaneous Approach (ICD-10-PCS; principal; 2016-12-08)
DX: L02.414 Cutaneous abscess of left upper limb (principal); F17.210 Nicotine dependence, cigarettes, uncomplicated; L03.114 Cellulitis of left upper limb; F19.10 Other psychoactive substance abuse, uncomplicated
CPT/HCPCS: 76882; 80048; 80076; 80307; 81001; 82565; 85025; 85610; 85730; 86403; 87040; 87070; 87186; 87205; 96365; 96372; 96375; J1644; J1885; J2543; J3370; J7030; J7050